=== PATIENT | male | born 1950 | race Caucasian/White ===

== ENCOUNTER 2018-07-26 08:26 | Emergency (ER) | payer MEDICARE, BC ==
[2018-07-26 08:51] VITALS: BP 129/73
--- NOTE | 2018-07-26 09:22 | EDM.PDOC ---
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 He started Chantix 2 months ago and since that time has noticed that his pulse is somewhat irregular when he does pulse oximetry but he doesn't feel palpitations. 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 He thinks these have been going on for the last 2 months. He has no significant shortness of breath, he has no chest pain. He is due for an appointment with his primary provider typewriter mechanic. Other than the Chantix, he has not had any other medication changes. Onset: Unknown/Unsure - Related Data Allergies Allergy/AdvReac Type Severity Reaction Status Date / Time No Known Allergies Allergy Verified 07/26/18 08:37 Home Meds: Home Meds Aspirin [Sage Chewable] 81 mg PO DAILY 10/01/14 [History] Nitroglycerin [Nitrostat] 0.4 mg SL Q5M PRN 10/01/14 [History] atorvaSTATin [Lipitor] 80 mg PO BEDTIME 10/01/14 [History] Albuterol [Ventolin HFA] 2 puff INH Q4H PRN 07/26/18 [History] Clopidogrel Bisulfate [Clopidogrel] 1 tab PO DAILY 07/26/18 [History] Fluticasone/Vilanterol [Breo Ellipta 100-25 MCG Inhalation Kit] 1 puff INH DAILY 07/26/18 [History] Metoprolol Succinate [Toprol XL] 25 mg PO DAILY 07/26/18 [History] Varenicline [Chantix] 1 tab PO BID 07/26/18 [History] Past Medical History HEENT History: Reports: None Cardiovascular History: Reports: Arrhythmia, NJ Respiratory History: Reports: COPD - Infectious Disease History Infectious Disease History: Reports: Chicken Pox, Measles, Mumps - Past Surgical History Head Surgeries/Procedures: Reports: None HEENT Surgical History: Reports: Cataract Surgery Cardiovascular Surgical History: Reports: Coronary Artery Stent Respiratory Surgical History: Reports: None Dermatological Surgical History: Reports: None Social & Family History - Family History Family Medical History: Noncontributory - Tobacco Use Smoking Status *Q: Current Every Day Smoker Years of Tobacco use: 40 Packs/Tins Daily: 0.2 Used Tobacco, but Quit: No Second Hand Smoke Exposure: No - Caffeine Use Caffeine Use: Reports: Coffee, Soda - Alcohol Use Days Per Week of Alcohol Use: 1 Number of Drinks Per Day: 2 Total Drinks Per Week: 2 Date of Last Drink: 07/20/18 - Recreational Drug Use Recreational Drug Use: No ED ROS GENERAL - Review of Systems Review Of Systems: See Below Constitutional: Denies: Fever, Chills HEENT: Reports: No Symptoms Respiratory: Reports: Shortness of Breath (Chronic mild intermittent shortness of breath, COPD) Cardiovascular: Denies: Chest Pain, Palpitations GI/Abdominal: Denies: Abdominal Pain, Nausea, Vomiting Skin: Reports: No Symptoms Neurological: Reports: No Symptoms. Denies: Dizziness, Headache Psychiatric: Reports: No Symptoms ED EXAM, GENERAL - Physical Exam Exam: See Below Exam Limited By: No Limitations General Appearance: Alert, No Apparent Distress Head: Atraumatic Neck: Normal Inspection Respiratory/Chest: No Respiratory Distress, Lungs Clear Cardiovascular: Regular Rate, Rhythm, Extra Beats GI/Abdominal: Non-Tender Extremities: Normal Inspection. No: Pedal Edema Neurological: Alert, Oriented Psychiatric: Normal Affect, Normal Mood EKG INTERPRETATION EKG Date: 07/26/18 Rhythm: NSR Comparison: No Change (Consistent with EKG in 2015) EKG Interpretation Comments: Patient has PVCs, old inferior NJ changes and a small bundle block, but all are consistent with an EKG in 2015. Course - Vital Signs Last Recorded V/S: Last Vital Signs Temp 96.2 F 07/26/18 08:33 Pulse 68 07/26/18 08:59 Resp 16 07/26/18 08:33 BP 129/73 07/26/18 08:33 Pulse Ox 97 07/26/18 08:33 - Orders/Labs/Meds Orders: Active Orders 24 hr Category Date Time Status EKG Documentation Completion [RC] ASDIRECTED Care 07/26/18 09:17 Active EKG 12 Lead [EK] Routine Ther 07/26/18 09:17 Ordered Labs: Laboratory Tests 07/26/18 07/26/18 Range/Units 09:17 09:45 WBC 6.6 (4.5-11.0) K/uL RBC 4.63 (4.30-5.90) M/uL Hgb 14.0 (12.0-15.0) g/dL Hct 42.4 (40.0-54.0) % MCV 92 (80-98) fL MCH 30 (27-31) pg MCHC 33 (32-36) % Plt Count 197 (150-400) K/uL Neut % (Auto) 74 H (36-66) % Lymph % (Auto) 15 L (24-44) % [place] % (Auto) 10 H (2-6) % Eos % (Auto) 1 L (2-4) % Baso % (Auto) 1 (0-1) % Sodium 138 L (140-148) mmol/L Potassium 4.1 (3.6-5.2) mmol/L Chloride 104 (100-108) mmol/L Carbon Dioxide 27 (21-32) mmol/L Anion Gap 11.1 (5.0-14.0) mmol/L BUN 24 H (7-18) mg/dL Creatinine 1.0 (0.8-1.3) mg/dL Est Cr Clr Drug Dosing 79.76 mL/min Estimated GFR (MDRD) > 60 (>60) Glucose 104 (74-106) mg/dL Calcium 10.4 H (8.5-10.1) mg/dL Troponin I 0.021 (0.000-0.056) ng/mL - Re-Assessments/Exams Free Text/Narrative Re-Assessment/Exam: 07/26/18 09:56 EKG is consistent with previous EKGs, CBC and CMP as well as a troponin were reassuring. Copies of his EKGs and labs were given to the patient and he will follow-up with his primary and likely cardiology in the near future. He can return if worsening or develops other concerns. Departure - Departure Time of Disposition: 10:04 Disposition: Home, Self-Care 01 Condition: Good Clinical Impression: Frequent PVCs Instructions: Premature Ventricular Contraction Referrals: PCP,None [Primary Care Provider] - Forms: ED Department Discharge Care Plan Goals: Continue your current medications and activity. Recheck with her primary provider or cardiology with your EKG and lab results to discuss any further testing needed or treatment change. - My Orders Last 24 Hours: My Active Orders 07/26/18 09:17 EKG Documentation Completion [RC] ASDIRECTED EKG 12 Lead [EK] Routine - Assessment/Plan Last 24 Hours: My Active Orders 07/26/18 09:17 EKG Documentation Completion [RC] ASDIRECTED EKG 12 Lead [EK] Routine
== END 2018-07-26 10:04 | disposition home or self-care (01) ==
LOC: JP.ED 08:26
DX: I49.3 Ventricular premature depolarization (principal); F17.210 Nicotine dependence, cigarettes, uncomplicated; J44.9 Chronic obstructive pulmonary disease, unspecified; I25.2 Old myocardial infarction; Z95.5 Presence of coronary angioplasty implant and graft; Z79.01 Long term (current) use of anticoagulants; Z79.899 Other long term (current) drug therapy; Z79.82 Long term (current) use of aspirin
CPT/HCPCS: 36415; 80048; 84484; 85025; 93005; 99284-25

== ENCOUNTER 2023-01-24 12:53 | Emergency (ER) | payer MEDICARE, BC ==
[2023-01-24] MEDS ORDERED: Sodium Chloride 0.9% 10 ML Syringe FLUSH PRN ×2 (12:56→13:40)
[2023-01-24] MEDS ORDERED: Furosemide 40 MG/4 ML VIAL IVPUSH ONE (13:40)
[2023-01-24 13:51] LABS: BASOPHILS ABSOLUTE AUTO 0.04 K/uL (0.00-0.10); BASOPHILS PERCENT AUTO 0.6 % (0.1-1.3); EOSINOPHILS PERCENT AUTO 0.1 % (0.0-5.4); HEMATOCRIT 42.4 % (38.4-49.7); HEMOGLOBIN 14.3 g/dL (12.9-16.9); IMMATURE GRAN PERCENT AUTO 0.1 % (0.0-0.7); LYMPHOCYTES ABSOLUTE AUTO 0.69 K/uL (0.8-3.3); LYMPHOCYTES PERCENT AUTO 9.5 % (11.4-47.7); MEAN CORPUSCULAR HEMOGLOBIN 32.5 pg (31.6-35.5); MEAN CORPUSCULAR HGB CONC 33.7 g/dL (31.6-35.5); MEAN CORPUSCULAR VOLUME 96.4 fL (81.4-99.0); MONOCYTES ABSOLUTE AUTO 0.56 K/uL (0.20-0.90); MONOCYTES PERCENT AUTO 7.7 % (3.3-12.6); NEUTROPHILS ABSOLUTE AUTO 5.95 K/uL (1.0-7.6); PLATELET COUNT,PLT 127 K/uL (130-375); WHITE BLOOD CELL COUNT,WBC 7.3 K/uL (3.2-11.0)
[2023-01-24 13:55] LABS: EOSINOPHILS ABSOLUTE AUTO 0.01 K/uL (0.00-0.40); IMMATURE GRAN ABSOLUTE AUTO 0.01 K/uL (0.00-0.23)
[2023-01-24 14:16] LABS: BLOOD UREA NITROGEN,BUN 27 mg/dL (7-18); CALCIUM 9.5 mg/dL (8.5-10.1); CARBON DIOXIDE,CO2 30 mmol/L (21-32); CHLORIDE,CL 101 mmol/L (100-108); CREATININE 1.1 mg/dL (0.8-1.3); ESTIMATED GFR 72 mL/min (>60); GLUCOSE RANDOM 116 mg/dL (74-106); POTASSIUM,K 3.7 mmol/L (3.6-5.2); PRO B-TYPE NATRIUR PEPT,BNPPRO 9620 pg/mL (5-125); SODIUM,NA 140 mmol/L (140-148)
[2023-01-24 14:17] LABS: TROPONIN I HIGH SENSITIVITY 253.5 pg/mL (<=60.3)
[2023-01-24 18:57] VITALS: BP 100/62; PULSE 56
== END 2023-01-24 19:14 | disposition left against medical advice (07) ==
LOC: JP.ED 12:53
DX: I50.9 Heart failure, unspecified (principal); I25.2 Old myocardial infarction; I25.10 Atherosclerotic heart disease of native coronary artery without angina pectoris; J44.9 Chronic obstructive pulmonary disease, unspecified; E78.00 Pure hypercholesterolemia, unspecified; Z79.02 Long term (current) use of antithrombotics/antiplatelets; Z79.899 Other long term (current) drug therapy
CPT/HCPCS: 36415; 71045; 80048; 83880; 84484; 85025; 93005; 96374; 99285; J1940